=== PATIENT | female | born 2000 | race Two or more races ===

== ENCOUNTER 2022-09-26 23:43 | Emergency (ER) | payer MEDICAID ==
[~2022-09-26] VITALS: Ht 165.1 cm; Wt 78.2 kg
[2022-09-27] MEDS ORDERED: ONDANSETRON ODT 4 MG TAB PO ONE (00:45)
[2022-09-27 00:48] LABS: Basophils # (auto) 0 10 ^3/uL (0-0.2); Basophils % (auto) 0.2 % (0.0-2.0); Eosinophils # (auto) 0 10 ^3/uL (0-0.8); Eosinophils % (auto) 0.1 % (0.0-7.0); Hematocrit 40.4 % (36.0-46.0); Hemoglobin 13.3 g/dL (12.2-16.2); Lymphocytes # (auto) 0.6 10 ^3/uL (0.4-5.4); Lymphocytes % (auto) 5.9 % (10.0-50.0); Mean Corpuscular Hemoglobin 28.8 pg (28.0-32.0); Mean Corpuscular Hgb Conc. 32.9 g/dL (32.0-36.0); Mean Corpuscular Volume 87.4 fL (80.0-100.0); Monocytes # (auto) 0.2 10 ^3/uL (0-1.3); Monocytes % (auto) 2.1 % (0.0-12.0); Neutrophils # (auto) 10.1 10 ^3/uL (1.6-8.6); Neutrophils % (auto) 91.7 % (37.0-80.0); Red Blood Cells 4.62 10^6/uL (4.0-5.20); Red Cell Distribution Width 13.9 % (11.8-14.3)
[2022-09-27 01:04] LABS: Albumin 3.8 g/dL (3.4-5.0); BUN/Creatinine Ratio 19.1; Calcium 8.8 mg/dL (8.5-10.1); Potassium 3.9 mmol/L (3.5-5.1)
[2022-09-27 01:07] LABS: Bilirubin, Total 0.6 mg/dL (0.2-1.0); Total Protein 8.1 g/dL (6.4-8.2)
[2022-09-27 01:32] LABS: Urine Bacteria FEW /hpf (None Seen); Urine Blood Negative /uL (Negative); Urine Mucus FEW (None Seen); Urine WBC 32 /hpf (0 - 5)
[2022-09-27 01:33] LABS: Alcohol, Urine < 3.0 mg/dL (0-10); Amphetamine Screen, Urine NEGATIVE (NEGATIVE); Barbiturate Scree,Urine NEGATIVE (NEGATIVE); Benzodiazephine Screen, Urine NEGATIVE (NEGATIVE); Cannabinoid Screen, Urine NEGATIVE (NEGATIVE); Cocaine Screen, Urine NEGATIVE (NEGATIVE); Opiate Scree,Urine NEGATIVE (NEGATIVE); Phencyclidine Screen, Urine NEGATIVE (NEGATIVE)
[2022-09-27] MEDS ORDERED: NITROFURANTOIN 100 mg CAP PO ONE (05:30)
[2022-09-27] MEDS ORDERED: LIDOCAINE VISCOUS 2% 15ML UD PO ONE (07:30)
[2022-09-27] MEDS ORDERED: MAALOX PLUS or MAALOX 30 ML PO ONE (07:30)
[2022-09-27] MEDS ORDERED: FAMOTIDINE 20 MG TAB PO ONE (07:30)
[2022-09-27] MEDS ORDERED: CEPH-322 PO (07:33)
[2022-09-27] MEDS ORDERED: ONDA-144 PO (07:34)
[2022-09-27 08:17] VITALS: BP 112/65
== END 2022-09-27 09:00 | disposition home or self-care (01) ==
LOC: ER 23:43
DX: R10.84 Generalized abdominal pain (principal); R11.2 Nausea with vomiting, unspecified; R19.7 Diarrhea, unspecified; R10.2 Pelvic and perineal pain; Z79.899 Other long term (current) drug therapy
CPT/HCPCS: 36415; 74176; 80053; 80307; 81001; 83690; 84702; 85025; 99284; Q0162